=== PATIENT | female | born 1990 | race Two or more races ===

== ENCOUNTER 2018-01-31 22:23 | Emergency (ER) | payer OTHER ==
[~2018-01-31] VITALS: Ht 175.3 cm; Wt 78.0 kg
[2018-02-01] MEDS ORDERED: KETO10TA2 PO (02:03)
== END 2018-02-01 02:13 | disposition home or self-care (01) ==
LOC: ER 22:23
DX: S62.654A Nondisplaced fracture of middle phalanx of right ring finger, initial encounter for closed fracture (principal); W22.8XXA Striking against or struck by other objects, initial encounter; Y93.89 Activity, other specified; Y92.89 Other specified places as the place of occurrence of the external cause; Y99.8 Other external cause status

== ENCOUNTER 2018-03-17 11:35 | Emergency (ER) | payer OTHER ==
[~2018-03-17] VITALS: Ht 167.6 cm; Wt 77.1 kg
[~2018-03-17 11:35] MED LIST: KETO10TA2 PO
[2018-03-17] MEDS ORDERED: TUSSI PRES-B L120 M1 PO (15:13)
[2018-03-17] MEDS ORDERED: ZITHROMAX TRI-500 MG PO (15:13)
== END 2018-03-17 15:35 | disposition home or self-care (01) ==
LOC: ER 11:35
DX: B34.9 Viral infection, unspecified (principal)

== ENCOUNTER → 2018-06-01 | Emergency (ER) | payer OTHER ==
[~2018-06-01] VITALS: Ht 175.3 cm; Wt 78.0 kg
[~2018-06-01] MED LIST changes: +TUSSI PRES-B L120 M1 PO; +ZITHROMAX TRI-500 MG PO
== END | disposition home or self-care (01) ==
LOC: ER 11:33
DX: R10.32 Left lower quadrant pain (principal)